=== PATIENT | female | born 1950 | race Caucasian/White ===

== ENCOUNTER 2022-02-06 05:58 | Day surgery (SDC) | payer MEDICARE, BC ==
[2022-02-03 16:03] VITALS: BMI 22.6
[2022-02-06] MEDS ORDERED: Bupivacaine PF 0.5% 30 ML VIAL ONE (06:39)
[2022-02-06] MEDS ORDERED: EPINEPHrine 1 MG/ML AMP ONE (06:39)
[2022-02-06] MEDS ORDERED: Rocuronium Bromide 10 MG/ML (10ML VIAL) ONE (07:18)
[2022-02-06] MEDS ORDERED: Fentanyl 100 MCG/2 ML VIAL ONE ×3 (07:18→08:46)
[2022-02-06] MEDS ORDERED: Dexamethasone 4 mg/ml Vial ONE (07:18)
[2022-02-06] MEDS ORDERED: Glycopyrrolate 0.2 MG/ML 5 ML SYRINGE ONE (07:18)
[2022-02-06] MEDS ORDERED: Ondansetron PF 4 MG/2 ML Vial ONE ×2 (07:18→09:05)
[2022-02-06] MEDS ORDERED: PROPOFOL 20 ML ONE (07:18)
[2022-02-06] MEDS ORDERED: Lidocaine 2% PF 5 ML VIAL ONE (07:18)
[2022-02-06] MEDS ORDERED: CEFAZOLIN 2 GM VIAL ONE (07:22)
[2022-02-06] MEDS ORDERED: HYDROcodone/Acetaminophen 5/325 mg Tablet PO PRN (08:35)
[2022-02-06] MEDS ORDERED: Acetaminophen 325 MG TAB PO PRN (08:35)
[2022-02-06] MEDS ORDERED: HYDROcodone/Acetaminophen 5/325 mg Tablet ONE (10:20)
== END 2022-02-06 10:30 | disposition home or self-care (01) ==
LOC: CSHSDC 05:58
PROVIDERS: ATTEND Surgery
PROC: 0FT44ZZ Resection of Gallbladder, Percutaneous Endoscopic Approach (ICD-10-PCS; principal; 2022-02-06)
DX: K80.10 Calculus of gallbladder with chronic cholecystitis without obstruction (principal); K82.8 Other specified diseases of gallbladder; R59.1 Generalized enlarged lymph nodes; F17.210 Nicotine dependence, cigarettes, uncomplicated; I10 Essential (primary) hypertension; K21.9 Gastro-esophageal reflux disease without esophagitis; Z20.822 Contact with and (suspected) exposure to COVID-19; Z79.82 Long term (current) use of aspirin; Z79.899 Other long term (current) drug therapy; Z88.8 Allergy status to other drugs, medicaments and biological substances
CPT/HCPCS: 47562; C1776; 88304; J0171; J0690; J1100; J2001; J2405; J2704; J3010; S0020

== ENCOUNTER 2022-02-08 14:55 | Observation (INO) | payer MEDICARE, BC ==
[~2022-02-08 14:55] MED LIST: Iopamidol 300 61% 100 ML VIAL FS ONE
[2022-02-08 15:31] LABS: #Eosinphils 0.3 10x3/uL (0.0-0.5); #Monocytes 0.4 10x3/uL (0.0-1.1); #Neutrophils 3.3 10x3/uL (1.5-8.4); %Basophils 0.2 % (0.0-2.0); %Eosinophils 5.2 % (0.0-6.0); %Monocytes 7.2 % (0.0-10.0); Hemoglobin 13.1 g/dL (12.0-15.5); Mean Corpuscular HGB CONC 34.1 g/dL (32.0-36.0); Mean Corpuscular Volume 93.7 fl (81.6-98.3); Mean Platelet Volume 11.8 fl (7.4-10.4); Platelet Count 70 10x3/uL (150-450); RBC Distribution Width 12.3 % (11.5-14.5); White Blood Cell (WBC) Count 5.5 10x3/uL (3.5-10.5)
[2022-02-08 15:47] LABS: ALT (SGPT) 88 U/L (8-55); AST (SGOT) 68 U/L (5-34); Albumin 3.9 g/dL (3.4-4.8); Alkaline Phosphatase 138 U/L (40-110); Anion Gap 17 mmol/L (10-20); BUN (Urea Nitrogen) 15 mg/dL (9.8-20.1); Calc. Creatinine Clearance 0 mL/min (70-130); Carbon Dioxide 30 mmol/L (23-31); Chloride 99 mmol/L (98-107); Estimated GFR 75; Globulin 2.4 g/dL (2.4-3.5); Glucose 88 mg/dL (80-115); Potassium 3.5 mmol/L (3.5-5.1); Protein, Total 6.3 g/dL (5.8-8.1); Sodium 142 mmol/L (136-145)
[2022-02-08 15:58] LABS: Calcium 12.4 mg/dL (7.8-10.44)
[2022-02-08] MEDS ORDERED: Acetaminophen 500 MG TAB ONE (16:49)
[2022-02-08] MEDS ORDERED: Cefepime 2 GM VIAL ONE (17:28)
[2022-02-08] MEDS ORDERED: Senokot S 8.6-50 MG TAB PO PRN (17:57)
[2022-02-08] MEDS ORDERED: Acetaminophen 325 MG TAB PO PRN (17:57)
[2022-02-08] MEDS ORDERED: Ondansetron PF 4 MG/2 ML Vial IVP PRN (17:57)
[2022-02-08] MEDS ORDERED: Vancomycin HCl 500 MG VIAL ONE (18:11)
[2022-02-08] MEDS ORDERED: Vancomycin 1.5 GRAM/300 ML BAG 1.5 GM in Premix Bag 1 BAG IVPB SCH (18:30)
[2022-02-08] MEDS ORDERED: Fluconazole 100 MG TAB PO SCH (19:00)
[2022-02-08] MEDS: Sodium Chloride 0.9% 1,000 ML IV SCH (19:16)
[2022-02-08] MEDS ORDERED: CEFAZOLIN 1 GM in Sodium Chloride 0.9% 100 ML IVPB SCH (22:00)
[2022-02-09 00:27] VITALS: BMI 22.6
[2022-02-09] MEDS: HYDROcodone/Acetaminophen 5/325 mg Tablet PO PRN ×4 (00:43→22:31)
[2022-02-09] MEDS: CEFAZOLIN 1 GM in Sodium Chloride 0.9% 100 ML IVPB SCH ×3 (01:30→18:34)
[2022-02-09] MEDS: Sodium Chloride 0.9% 1,000 ML IV SCH ×3 (01:32→18:34)
[2022-02-09 05:07] LABS: #Eosinphils 0.3 10x3/uL (0.0-0.5); #Monocytes 0.3 10x3/uL (0.0-1.1); #Neutrophils 1.8 10x3/uL (1.5-8.4); %Basophils 0.3 % (0.0-2.0); %Eosinophils 8.6 % (0.0-6.0); %Lymphocytes 34.6 % (18.0-47.0); %Monocytes 8.1 % (0.0-10.0); %Neutrophils 48.1 % (40.0-75.0); Mean Corpuscular HGB CONC 34.1 g/dL (32.0-36.0); Mean Corpuscular Hemoglobin 32.1 pg (27.0-33.0); Mean Corpuscular Volume 94.2 fl (81.6-98.3); Mean Platelet Volume 11.2 fl (7.4-10.4); Platelet Count 54 10x3/uL (150-450); RBC Distribution Width 12.2 % (11.5-14.5); Red Blood Cell (RBC) Count 3.43 10x6/uL (3.90-5.03); White Blood Cell (WBC) Count 3.7 10x3/uL (3.5-10.5)
[2022-02-09 05:30] LABS: ALT (SGPT) 48 U/L (8-55); AST (SGOT) 25 U/L (5-34); Albumin 2.9 g/dL (3.4-4.8); Alkaline Phosphatase 91 U/L (40-110); Anion Gap 14 mmol/L (10-20); BUN (Urea Nitrogen) 12 mg/dL (9.8-20.1); Bilirubin, Total 0.6 mg/dL (0.2-1.2); Calc. Creatinine Clearance 69 mL/min (70-130); Calcium 9.7 mg/dL (7.8-10.44); Carbon Dioxide 25 mmol/L (23-31); Chloride 108 mmol/L (98-107); Estimated GFR 93; Globulin 1.7 g/dL (2.4-3.5); Glucose 112 mg/dL (80-115); Potassium 2.9 mmol/L (3.5-5.1); Protein, Total 4.6 g/dL (5.8-8.1); Sodium 144 mmol/L (136-145)
[2022-02-09] MEDS: Potassium Chloride 20 MEQ in Premix Bag 1 BAG IVPB SCH ×2 (06:32→09:16)
[2022-02-09] MEDS ORDERED: Enoxaparin Sodium 40 MG/0.4 ML SYRINGE SC SCH (09:00)
[2022-02-09] MEDS: Aspirin 81 mg Enteric Coated Tablet PO SCH (09:07)
[2022-02-09] MEDS ORDERED: Potassium Chloride 20 MEQ TAB PO SCH (10:00)
[2022-02-09 15:24] LABS: Magnesium 1.4 mg/dL (1.6-2.6); Potassium 3.7 mmol/L (3.5-5.1)
[2022-02-09] MEDS ORDERED: VANCOMYCIN 1.25 GM/250 ML BAG 1.25 GM in Premix Bag 1 BAG IVPB SCH (20:00)
[2022-02-10] MEDS: CEFAZOLIN 1 GM in Sodium Chloride 0.9% 100 ML IVPB SCH ×2 (03:01→11:17)
[2022-02-10 04:30] LABS: Anion Gap 12 mmol/L (10-20); BUN (Urea Nitrogen) 8 mg/dL (9.8-20.1); Calc. Creatinine Clearance 77 mL/min (70-130); Calcium 8.9 mg/dL (7.8-10.44); Carbon Dioxide 23 mmol/L (23-31); Chloride 111 mmol/L (98-107); Estimated GFR 96; Glucose 94 mg/dL (80-115); Magnesium 1.3 mg/dL (1.6-2.6); Potassium 3.2 mmol/L (3.5-5.1); Sodium 143 mmol/L (136-145)
[2022-02-10 04:35] LABS: #Eosinphils 0.3 10x3/uL (0.0-0.5); #Monocytes 0.3 10x3/uL (0.0-1.1); %Basophils 0.3 % (0.0-2.0); %Eosinophils 6.8 % (0.0-6.0); %Lymphocytes 32.1 % (18.0-47.0); %Monocytes 8.3 % (0.0-10.0); %Neutrophils 51.5 % (40.0-75.0); Mean Corpuscular HGB CONC 34.1 g/dL (32.0-36.0); Mean Corpuscular Hemoglobin 31.8 pg (27.0-33.0); Mean Corpuscular Volume 93.4 fl (81.6-98.3); Mean Platelet Volume 11.3 fl (7.4-10.4); Platelet Count 61 10x3/uL (150-450); RBC Distribution Width 12.1 % (11.5-14.5); Red Blood Cell (RBC) Count 3.46 10x6/uL (3.90-5.03)
[2022-02-10] MEDS: Aspirin 81 mg Enteric Coated Tablet PO SCH (08:07)
[2022-02-10] MEDS ORDERED: Electrolyte Replacement Protocol 1 EACH FS SCH (08:30)
[2022-02-10] MEDS ORDERED: Potassium Chloride 20 MEQ TAB PO SCH (08:30)
[2022-02-10] MEDS: Magnesium 2 GM/50 ML(in water) 2 GM in Premix Bag 1 BAG IVPB SCH ×2 (09:06→10:00)
[2022-02-10] MEDS ORDERED: hydrALAZINE 20 MG/ML VIAL SLOW IVP PRN (09:53)
[2022-02-10 11:31] VITALS: BP 141/65; TEMP 97.2
[2022-02-10 13:30] LABS: Magnesium 2.8 mg/dL (1.6-2.6); Potassium 3.6 mmol/L (3.5-5.1)
== END 2022-02-10 16:15 | disposition home or self-care (01) ==
LOC: CSHERS 14:55 → SUATTDRO 14:55 → CSHERHOLD 18:11 → CSHTELE 02-09 00:12
PROVIDERS: ADMIT Internal Medicine; ATTEND Internal Medicine
DX: T81.41XA Infection following a procedure, superficial incisional surgical site, initial encounter (principal); L03.311 Cellulitis of abdominal wall; B95.62 Methicillin resistant Staphylococcus aureus infection as the cause of diseases classified elsewhere; D69.6 Thrombocytopenia, unspecified; I10 Essential (primary) hypertension; E87.6 Hypokalemia; E83.42 Hypomagnesemia; E83.52 Hypercalcemia; I20.1 Angina pectoris with documented spasm; J44.9 Chronic obstructive pulmonary disease, unspecified; R59.0 Localized enlarged lymph nodes; R74.01 Elevation of levels of liver transaminase levels; F17.210 Nicotine dependence, cigarettes, uncomplicated; Z85.038 Personal history of other malignant neoplasm of large intestine; Z79.82 Long term (current) use of aspirin; Z79.899 Other long term (current) drug therapy; Z91.040 Latex allergy status; Z88.8 Allergy status to other drugs, medicaments and biological substances; Z90.49 Acquired absence of other specified parts of digestive tract; Y83.8 Other surgical procedures as the cause of abnormal reaction of the patient, or of later complication, without mention of misadventure at the time of the procedure
CPT/HCPCS: 36415; 74177; 80048; 80053; 83605; 83690; 83735; 85025; 87040; 87081; 93005; 94760; 96361; 96365; 96366; 96367; 96375; 96376; G0378; J0690; J0692; J2405; J3370; J3475; J3480; J3490; J7050; Q9967

== ENCOUNTER 2022-11-25 11:23 | Inpatient (IN) | payer MEDICARE, BC ==
[2022-11-25 12:13] LABS: ALT (SGPT) 24 U/L (8-55); AST (SGOT) 32 U/L (5-34); Albumin 2.9 g/dL (3.4-4.8); Alkaline Phosphatase 93 U/L (40-110); Anion Gap 17 mmol/L (10-20); BUN (Urea Nitrogen) 39 mg/dL (9.8-20.1); Bilirubin, Total 1.3 mg/dL (0.2-1.2); Calc. Creatinine Clearance 0 mL/min (70-130); Calcium 11.2 mg/dL (7.8-10.44); Carbon Dioxide 18 mmol/L (23-31); Chloride 102 mmol/L (98-107); Estimated GFR 57; Globulin 1.8 g/dL (2.4-3.5); Glucose 103 mg/dL (83-110); Potassium 3.8 mmol/L (3.5-5.1); Protein, Total 4.7 g/dL (5.8-8.1); Sodium 133 mmol/L (136-145)
[2022-11-25] MEDS ORDERED: Promethazine HCl 12.5 MG in Sodium Chloride 0.9% 50 ML IVPB SCH (12:15)
[2022-11-25 12:20] LABS: Magnesium 1.9 mg/dL (1.6-2.6)
[2022-11-25 12:31] LABS: Platelet Count 44 10x3/uL (150-450); White Blood Cell (WBC) Count 2.7 10x3/uL (3.5-10.5)
[2022-11-25 12:32] LABS: Hemoglobin 9.7 g/dL (12.0-15.5); Mean Corpuscular HGB CONC 33.4 g/dL (32.0-36.0); Mean Corpuscular Hemoglobin 30.1 pg (27.0-33.0); Mean Corpuscular Volume 90.1 fl (81.6-98.3); Mean Platelet Volume 11.6 fl (7.4-10.4); RBC Distribution Width 18.1 % (11.5-14.5); Red Blood Cell (RBC) Count 3.22 10x6/uL (3.90-5.03)
[2022-11-25 12:49] LABS: Band 12 % (5-11); Lymphocytes 4 % (21-51); Metamyelocyte 1 % (0-0); Monocytes 2 % (0-10)
[2022-11-25 12:51] LABS: Neutrophil 81 % (42-75)
[2022-11-25 12:54] LABS: Anisocytosis SLIGHT = 6-15 cells (100X) (0-5/hpf); Ovalocytes MODERATE= 6-15 cells (100X) (0-1/hpf)
[2022-11-25 12:55] LABS: Burr Cells SLIGHT = 2-5 cells (100X) (0-1/hpf); Macrocytosis SLIGHT = 6-15 cells (100X) (0-5/hpf); Microcytosis SLIGHT = 6-15 cells (100X) (0-5/hpf); Tear Drops SLIGHT = 2-5 cells (100X) (0-1/hpf)
[2022-11-25 12:57] LABS: Poikilocytosis SLIGHT = 6-15 cells (100X) (0-5/hpf)
[2022-11-25 12:58] LABS: Dohle Bodies SLIGHT; Large Platelets SLIGHT (None Seen); Platelet Adequacy Comment Appears Decreased
[2022-11-25 13:02] LABS: MDiff Complete? YES
[2022-11-25] MEDS ORDERED: Piperacillin/Tazobactam 4.5 GM VIAL ONE (13:43)
[2022-11-25] MEDS ORDERED: fentaNYL 50 mcg/mL 1 mL Vial ONE ×3 (13:43→17:20)
[2022-11-25] MEDS ORDERED: Pantoprazole 40 MG VIAL ONE (13:43)
[2022-11-25 14:47] LABS: Lactic Acid 3.5 mmol/L (0.5-2.2)
[2022-11-25] MEDS ORDERED: Ketorolac Tromethamine 30 MG/ML VIAL ONE (15:38)
[2022-11-25] MEDS ORDERED: Ondansetron ODT 4 MG TAB PO PRN ×2 (17:10→17:15)
[2022-11-25] MEDS ORDERED: D5 1/2 NS w/20 mEq KCL 1,000 ML IV SCH (17:15)
[2022-11-25] MEDS ORDERED: Albumin 25% 100 ML ONE (18:21)
[2022-11-25] MEDS ORDERED: NS 0.9% w/ 20 MEQ KCL 1,000 ML/1,000 ML BAG IV SCH (19:15)
[2022-11-25] MEDS ORDERED: Piperacillin/Tazobactam 3.375 GM in Sodium Chloride 0.9% 100 ML IVPB SCH ×2 (19:30→22:00)
[2022-11-25] MEDS ORDERED: Piperacillin/Tazobactam 3.375 GM VIAL ONE (19:43)
[2022-11-25] MEDS ORDERED: Boostrix 0.5 ML (Tdap) VIAL (>/=7 yrs of age) ONE (19:43)
[2022-11-25] MEDS: TETANUS, DIPHTHERIA TOX,ADULT (TDVAX) 0.5 ML VIAL IM ONE ×2 (19:44→20:31)
[2022-11-25 19:50] LABS: Hemoglobin 5.7 g/dL (12.0-15.5); Mean Corpuscular HGB CONC 32.9 g/dL (32.0-36.0); Mean Corpuscular Volume 91.1 fl (81.6-98.3); Mean Platelet Volume 10.8 fl (7.4-10.4); Platelet Count 19 10x3/uL (150-450); White Blood Cell (WBC) Count 0.9 10x3/uL (3.5-10.5)
[2022-11-25 20:08] LABS: ALT (SGPT) 15 U/L (8-55); AST (SGOT) 19 U/L (5-34); Albumin 2.4 g/dL (3.4-4.8); Alkaline Phosphatase 58 U/L (40-110); Anion Gap 12 mmol/L (10-20); BUN (Urea Nitrogen) 35 mg/dL (9.8-20.1); Bilirubin, Total 1.1 mg/dL (0.2-1.2); Calc. Creatinine Clearance 38 mL/min (70-130); Carbon Dioxide 17 mmol/L (23-31); Chloride 108 mmol/L (98-107); Estimated GFR 63; Globulin 1.1 g/dL (2.4-3.5); Glucose 108 mg/dL (83-110); Potassium 3.3 mmol/L (3.5-5.1); Protein, Total 3.5 g/dL (5.8-8.1); Sodium 134 mmol/L (136-145)
[2022-11-25 20:21] LABS: Anisocytosis SLIGHT = 6-15 cells (100X) (0-5/hpf)
[2022-11-25 20:22] LABS: Hypochromia SLIGHT = 6-15 cells (100X) (0-5/hpf); Ovalocytes SLIGHT = 2-5 cells (100X) (0-1/hpf); Platelet Adequacy Comment Appears Decreased; Polychromasia SLIGHT = 2-3 cells (100X) (0-2/hpf); Reflex for Review?? YES; Tear Drops SLIGHT = 2-5 cells (100X) (0-1/hpf)
[2022-11-25] MEDS ORDERED: Piperacillin/Tazobactam 4.5 GM in Sodium Chloride 0.9% 100 ML IVPB SCH (20:30)
[2022-11-25] MEDS ORDERED: Pantoprazole 40 MG VIAL IVP SCH (21:00)
[2022-11-25] MEDS ORDERED: NIFEdipine XL 60 MG TAB PO SCH (21:00)
[2022-11-25] MEDS: Dextrose 5%-Lactated Ringers 1,000 ML IV SCH (21:33)
[2022-11-25] MEDS: Hydrocortisone Sod Succ/PF 100 mg/2 ml Vial IVP SCH (21:48)
[2022-11-25] MEDS: Potassium Chloride 20 MEQ in Premix Bag 1 BAG IVPB SCH ×2 (21:50→23:52)
[2022-11-25] MEDS ORDERED: Pantoprazole 80 MG, Admixture Fee 1 EACH in Sodium Chloride 0.9% 100 ML IVPB SCH (22:00)
[2022-11-25] MEDS ORDERED: TBO-Filgrastim 300 MCG/0.5 ML VIAL SC SCH (22:00)
[2022-11-25] MEDS ORDERED: Vancomycin HCl 1 GM in Sodium Chloride 0.9% 250 ML 250 ML IVPB SCH (23:00)
[2022-11-26] LABS: Legionella Urinary Ag Negative (Negative); Strep pneumo Urine Ag NEGATIVE (NEGATIVE)
[2022-11-26] MEDS: Albumin 25% 25 GM/100 ML BOT IVPB SCH ×2 (00:36→05:01)
[2022-11-26] MEDS: Piperacillin/Tazobactam 3.375 GM in Sodium Chloride 0.9% 100 ML IVPB SCH ×3 (03:08→20:29)
[2022-11-26 03:42] LABS: Hemoglobin 8.9 g/dL (12.0-15.5); Mean Corpuscular HGB CONC 32.8 g/dL (32.0-36.0); Mean Corpuscular Hemoglobin 30.5 pg (27.0-33.0); Mean Corpuscular Volume 92.8 fl (81.6-98.3); Mean Platelet Volume 12.9 fl (7.4-10.4); Platelet Count 20 10x3/uL (150-450); RBC Distribution Width 16.6 % (11.5-14.5); Red Blood Cell (RBC) Count 2.92 10x6/uL (3.90-5.03); White Blood Cell (WBC) Count 2.6 10x3/uL (3.5-10.5)
[2022-11-26 03:44] LABS: MDiff Complete? YES
[2022-11-26 04:07] LABS: ALT (SGPT) 14 U/L (8-55); AST (SGOT) 20 U/L (5-34); Albumin 2.6 g/dL (3.4-4.8); Alkaline Phosphatase 64 U/L (40-110); Anion Gap 14 mmol/L (10-20); BUN (Urea Nitrogen) 34 mg/dL (9.8-20.1); Band 6 % (5-11); Bilirubin, Total 1.2 mg/dL (0.2-1.2); Calc. Creatinine Clearance 36 mL/min (70-130); Carbon Dioxide 14 mmol/L (23-31); Chloride 110 mmol/L (98-107); Estimated GFR 60; Globulin 1.2 g/dL (2.4-3.5); Glucose 142 mg/dL (83-110); Lymphocytes 8 % (21-51); Magnesium 1.7 mg/dL (1.6-2.6); Monocytes 6 % (0-10); Neutrophil 80 % (42-75); Potassium 3.9 mmol/L (3.5-5.1); Protein, Total 3.8 g/dL (5.8-8.1); Sodium 134 mmol/L (136-145)
[2022-11-26 04:08] LABS: Anisocytosis SLIGHT = 6-15 cells (100X) (0-5/hpf); Ovalocytes SLIGHT = 2-5 cells (100X) (0-1/hpf); Tear Drops SLIGHT = 2-5 cells (100X) (0-1/hpf)
[2022-11-26 04:09] LABS: Platelet Adequacy Comment Platelets Decreased
[2022-11-26] MEDS: Dextrose 5%-Lactated Ringers 1,000 ML IV SCH ×3 (04:42→20:30)
[2022-11-26] MEDS: Hydrocortisone Sod Succ/PF 100 mg/2 ml Vial IVP SCH ×3 (05:01→22:09)
[2022-11-26 08:57] LABS: Hemoglobin 8.8 g/dL (12.0-15.5); Mean Corpuscular HGB CONC 33.5 g/dL (32.0-36.0); Mean Corpuscular Hemoglobin 30.8 pg (27.0-33.0); Mean Platelet Volume 11.8 fl (7.4-10.4); Platelet Count 15 10x3/uL (150-450); RBC Distribution Width 16.9 % (11.5-14.5); Red Blood Cell (RBC) Count 2.86 10x6/uL (3.90-5.03); White Blood Cell (WBC) Count 3.5 10x3/uL (3.5-10.5)
[2022-11-26 08:59] LABS: MDiff Complete? YES
[2022-11-26] MEDS ORDERED: Losartan Potassium 50 MG TAB PO SCH (09:00)
[2022-11-26] MEDS ORDERED: Pantoprazole 40 MG VIAL IVP SCH ×2 (09:00→21:15)
[2022-11-26 09:22] LABS: Band 6 % (5-11); Lymphocytes 4 % (21-51); Monocytes 1 % (0-10); Neutrophil 90 % (42-75)
[2022-11-26 09:23] LABS: Platelet Adequacy Comment Significant decrease
[2022-11-26 09:24] LABS: Ovalocytes MODERATE= 6-15 cells (100X) (0-1/hpf)
[2022-11-26 09:25] LABS: Burr Cells MODERATE= 6-15 cells (100X) (0-1/hpf); Tear Drops SLIGHT = 2-5 cells (100X) (0-1/hpf)
[2022-11-26 09:33] LABS: Lymphocytes 22 % (21-51); Monocytes 2 % (0-10)
[2022-11-26 09:34] LABS: Band 4 % (5-11); Neutrophil 72 % (42-75)
[2022-11-26 09:35] LABS: MDiff Complete? YES
[2022-11-26] MEDS: Morphine 4 MG/ML VIAL SLOW IVP PRN (11:35)
[2022-11-26] MEDS ORDERED: Electrolyte Replacement Protocol 1 EACH FS SCH (12:00)
[2022-11-26] MEDS ORDERED: Magnesium 2 GM/50 ML(in water) 2 GM in Premix Bag 1 BAG IVPB SCH (13:00)
[2022-11-26] MEDS: Ondansetron PF 4 MG/2 ML Vial IVP PRN (15:33)
[2022-11-26] MEDS: Vancomycin HCl 750 MG in Sodium Chloride 0.9% 250 ML 250 ML IVPB SCH (16:34)
[2022-11-26] MEDS: Ipratropium/Albuterol 3 ML NEB NEB PRN (19:50)
[2022-11-27] MEDS: Ipratropium/Albuterol 3 ML NEB NEB PRN ×4 (00:25→19:30)
[2022-11-27] MEDS: Piperacillin/Tazobactam 3.375 GM in Sodium Chloride 0.9% 100 ML IVPB SCH ×3 (03:23→20:48)
[2022-11-27 03:59] LABS: ALT (SGPT) 17 U/L (8-55); AST (SGOT) 18 U/L (5-34); Albumin 2.7 g/dL (3.4-4.8); Alkaline Phosphatase 74 U/L (40-110); Anion Gap 17 mmol/L (10-20); BUN (Urea Nitrogen) 34 mg/dL (9.8-20.1); Bilirubin, Total 2.1 mg/dL (0.2-1.2); Calc. Creatinine Clearance 36 mL/min (70-130); Calcium 8.5 mg/dL (7.8-10.44); Carbon Dioxide 13 mmol/L (23-31); Chloride 114 mmol/L (98-107); Estimated GFR 55; Globulin 1.4 g/dL (2.4-3.5); Glucose 227 mg/dL (83-110); Magnesium 2.1 mg/dL (1.6-2.6); Potassium 2.9 mmol/L (3.5-5.1); Protein, Total 4.1 g/dL (5.8-8.1); Sodium 141 mmol/L (136-145)
[2022-11-27 04:10] LABS: Hemoglobin 7.4 g/dL (12.0-15.5); Mean Corpuscular HGB CONC 31.4 g/dL (32.0-36.0); Mean Corpuscular Hemoglobin 30.6 pg (27.0-33.0); Mean Corpuscular Volume 97.5 fl (81.6-98.3); Mean Platelet Volume 11.8 fl (7.4-10.4); Platelet Count 23 10x3/uL (150-450); RBC Distribution Width 17.4 % (11.5-14.5); Red Blood Cell (RBC) Count 2.42 10x6/uL (3.90-5.03); White Blood Cell (WBC) Count 2.3 10x3/uL (3.5-10.5)
[2022-11-27] MEDS: Potassium Chloride 20 MEQ in Premix Bag 1 BAG IVPB SCH ×3 (04:15→08:42)
[2022-11-27] MEDS: Dextrose 5%-Lactated Ringers 1,000 ML IV SCH (04:15)
[2022-11-27] MEDS ORDERED: Furosemide 20 MG/2 ML VIAL SLOW IVP SCH (04:45)
[2022-11-27] MEDS: Hydrocortisone Sod Succ/PF 100 mg/2 ml Vial IVP SCH ×3 (05:30→22:37)
[2022-11-27 05:33] LABS: MDiff Complete? YES
[2022-11-27 06:10] LABS: Band 8 % (5-11); Lymphocytes 1 % (21-51); Neutrophil 91 % (42-75)
[2022-11-27 06:15] LABS: Crenated RBC SLIGHT = 1-5 cells (100X) (None Seen); Macrocytosis SLIGHT = 6-15 cells (100X) (0-5/hpf); Ovalocytes SLIGHT = 2-5 cells (100X) (0-1/hpf); Schistocytes SLIGHT = 2-5 cells (100X) (0-1/hpf); Tear Drops SLIGHT = 2-5 cells (100X) (0-1/hpf)
[2022-11-27 06:16] LABS: Platelet Adequacy Comment Platelets Decreased
[2022-11-27] MEDS: Morphine 4 MG/ML VIAL SLOW IVP PRN ×4 (07:34→14:38)
[2022-11-27] MEDS ORDERED: Potassium Phosphate 15 MMOL in Sodium Chloride 0.9% 100 ML IVPB SCH (08:00)
[2022-11-27] MEDS: Pantoprazole 40 MG VIAL IVP SCH ×2 (08:14→20:49)
[2022-11-27] MEDS: Ondansetron PF 4 MG/2 ML Vial IVP PRN (08:40)
[2022-11-27] MEDS ORDERED: Promethazine HCl 12.5 MG in Sodium Chloride 0.9% 50 ML IVPB PRN (08:42)
[2022-11-27] MEDS ORDERED: Dextrose 5%-Lactated Ringers 1,000 ML IV SCH (08:42)
[2022-11-27] MEDS: Albumin 25% 25 GM/100 ML BOT IVPB SCH ×3 (09:13→20:48)
[2022-11-27] MEDS ORDERED: Furosemide 40 MG/4 ML VIAL SLOW IVP SCH ×2 (10:00→15:00)
[2022-11-27] MEDS: Vancomycin HCl 750 MG in Sodium Chloride 0.9% 250 ML 250 ML IVPB SCH (10:48)
[2022-11-27 11:02] LABS: Vancomycin, Trough 14.9 ug/mL
[2022-11-27 13:13] LABS: Hemoglobin 10.3 g/dL (12.0-15.5); Mean Corpuscular HGB CONC 32.9 g/dL (32.0-36.0); Mean Corpuscular Hemoglobin 31.1 pg (27.0-33.0); Mean Corpuscular Volume 94.6 fl (81.6-98.3); Platelet Count 23 10x3/uL (150-450); RBC Distribution Width 16.5 % (11.5-14.5); Red Blood Cell (RBC) Count 3.31 10x6/uL (3.90-5.03); White Blood Cell (WBC) Count 3.4 10x3/uL (3.5-10.5)
[2022-11-27 13:33] LABS: Anion Gap 15 mmol/L (10-20); BUN (Urea Nitrogen) 35 mg/dL (9.8-20.1); Calc. Creatinine Clearance 36 mL/min (70-130); Calcium 8.9 mg/dL (7.8-10.44); Carbon Dioxide 14 mmol/L (23-31); Chloride 114 mmol/L (98-107); Estimated GFR 50; Glucose 178 mg/dL (83-110); Potassium 4.4 mmol/L (3.5-5.1); Sodium 139 mmol/L (136-145)
[2022-11-27 13:37] LABS: MDiff Complete? YES
[2022-11-27 13:42] LABS: Band 2 % (5-11); Eosinophils 1 % (0-10); Lymphocytes 5 % (21-51); Neutrophil 92 % (42-75)
[2022-11-27 13:43] LABS: Platelet Adequacy Comment Appears Decreased; RBC Morph Comment Within Normal Limits
[2022-11-27] MEDS: Acetaminophen 325 MG TAB PO SCH ×2 (14:36→20:49)
[2022-11-27] MEDS: Sodium Bicarbonate 75 MEQ in Dextrose 5% in Water 1,000 ML IV SCH (16:58)
[2022-11-28] MEDS: Albumin 25% 25 GM/100 ML BOT IVPB SCH ×4 (02:02→23:22)
[2022-11-28] MEDS: Acetaminophen 325 MG TAB PO SCH ×4 (02:02→20:35)
[2022-11-28] MEDS: Ipratropium/Albuterol 3 ML NEB NEB PRN ×4 (02:20→19:04)
[2022-11-28] MEDS ORDERED: Furosemide 40 MG/4 ML VIAL SLOW IVP SCH (03:00)
[2022-11-28] MEDS: Piperacillin/Tazobactam 3.375 GM in Sodium Chloride 0.9% 100 ML IVPB SCH (03:12)
[2022-11-28] MEDS ORDERED: Vancomycin HCl 750 MG in Dextrose 5% in Water 250 ML IVPB SCH (05:00)
[2022-11-28 05:02] LABS: Actual Bicarbonate (HCO3a) 14.8 mEq/L (22-28); CO2 Tension 25.6 mmHg (35.0-45.0); Calcium, Ionized (arterial) 1.21 mmol/L (1.12-1.30); Carboxyhemoglobin (COHb) 0.7 gm% (0.0-3.0); Hematocrit-ABG 29 % (36.0-47.0); Hemoglobin (Hb) 9.8 g/dL (12.0-16.0); O2 Tension (PaO2), arterial 148.4 mmHg (> 70.0); Potassium - ABG Lab 3.71 mmol/L (3.70-5.30); Puncture Site RRA; pH, Arterial 7.381 (7.35-7.45)
[2022-11-28 05:17] LABS: Lactic Acid 2.2 mmol/L (0.5-2.2)
[2022-11-28 05:20] LABS: Anion Gap 18 mmol/L (10-20); BUN (Urea Nitrogen) 37 mg/dL (9.8-20.1); Calc. Creatinine Clearance 35 mL/min (70-130); Calcium 8.7 mg/dL (7.8-10.44); Carbon Dioxide 13 mmol/L (23-31); Chloride 113 mmol/L (98-107); Estimated GFR 47; Glucose 146 mg/dL (83-110); Potassium 3.7 mmol/L (3.5-5.1); Sodium 140 mmol/L (136-145)
[2022-11-28 05:22] LABS: Phosphorus 2.7 mg/dL (2.3-4.7)
[2022-11-28 05:25] LABS: Hemoglobin 9.3 g/dL (12.0-15.5); MDiff Complete? YES; Mean Corpuscular HGB CONC 33.5 g/dL (32.0-36.0); Mean Corpuscular Hemoglobin 31.3 pg (27.0-33.0); Mean Corpuscular Volume 93.6 fl (81.6-98.3); Platelet Count 30 10x3/uL (150-450); Red Blood Cell (RBC) Count 2.97 10x6/uL (3.90-5.03); White Blood Cell (WBC) Count 2.7 10x3/uL (3.5-10.5)
[2022-11-28] MEDS: Sodium Bicarbonate 75 MEQ in Dextrose 5% in Water 1,000 ML IV SCH ×2 (06:16→17:55)
[2022-11-28] MEDS: Hydrocortisone Sod Succ/PF 100 mg/2 ml Vial IVP SCH ×3 (06:16→20:36)
[2022-11-28 07:04] LABS: Band 3 % (5-11); Lymphocytes 5 % (21-51); Monocytes 5 % (0-10); Neutrophil 87 % (42-75)
[2022-11-28 07:06] LABS: Crenated RBC SLIGHT = 1-5 cells (100X) (None Seen); Hypochromia SLIGHT = 6-15 cells (100X) (0-5/hpf); Microcytosis SLIGHT = 6-15 cells (100X) (0-5/hpf); Ovalocytes SLIGHT = 2-5 cells (100X) (0-1/hpf); Schistocytes SLIGHT = 2-5 cells (100X) (0-1/hpf); Tear Drops SLIGHT = 2-5 cells (100X) (0-1/hpf)
[2022-11-28 07:07] LABS: Platelet Adequacy Comment Appears Decreased
[2022-11-28] MEDS: Pantoprazole 40 MG VIAL IVP SCH ×2 (08:04→20:35)
[2022-11-28] MEDS: Furosemide 40 MG TAB PO SCH ×2 (08:05→15:21)
[2022-11-28] MEDS ORDERED: Meropenem 1 GM in Sodium Chloride 0.9% 100 ML IVPB SCH ×2 (12:00→14:00)
[2022-11-28] MEDS ORDERED: Piperacillin/Tazobactam 3.375 GM in Dextrose 5% in Water 100 ML IVPB SCH (12:00)
[2022-11-28] MEDS: Ondansetron PF 4 MG/2 ML Vial IVP PRN (16:56)
[2022-11-28] MEDS ORDERED: Promethazine HCl 25 MG/ML VIAL ONE ×2 (18:24→18:29)
[2022-11-28] MEDS: WATER IVPB PRN (18:29)
[2022-11-28] MEDS: DEXTROSE 5% IVPB PRN (18:29)
[2022-11-28] MEDS: PROMETHAZINE HCL IVPB PRN (18:29)
[2022-11-28] MEDS: Meropenem 1 GM in Sodium Chloride 0.9% 100 ML IVPB SCH (20:35)
[2022-11-29] MEDS: Ondansetron PF 4 MG/2 ML Vial IVP PRN ×2 (00:07→08:21)
[2022-11-29] MEDS: Acetaminophen 325 MG TAB PO SCH ×5 (01:56→19:59)
[2022-11-29] MEDS: Ipratropium/Albuterol 3 ML NEB NEB PRN (02:55)
[2022-11-29] MEDS: Albumin 25% 25 GM/100 ML BOT IVPB SCH (04:05)
[2022-11-29 04:11] LABS: Hemoglobin 7.4 g/dL (12.0-15.5); Mean Corpuscular HGB CONC 33.2 g/dL (32.0-36.0); Mean Corpuscular Hemoglobin 31.2 pg (27.0-33.0); Mean Corpuscular Volume 94.1 fl (81.6-98.3); Mean Platelet Volume 13.9 fl (7.4-10.4); Platelet Count 10 10x3/uL (150-450); Red Blood Cell (RBC) Count 2.37 10x6/uL (3.90-5.03); White Blood Cell (WBC) Count 1.4 10x3/uL (3.5-10.5)
[2022-11-29 04:15] LABS: Anion Gap 14 mmol/L (10-20); BUN (Urea Nitrogen) 41 mg/dL (9.8-20.1); Calc. Creatinine Clearance 33 mL/min (70-130); Calcium 8.5 mg/dL (7.8-10.44); Carbon Dioxide 20 mmol/L (23-31); Chloride 110 mmol/L (98-107); Estimated GFR 44; Glucose 117 mg/dL (83-110); Potassium 2.8 mmol/L (3.5-5.1); Sodium 141 mmol/L (136-145)
[2022-11-29] MEDS: Potassium Chloride 40 MEQ in Premix Bag 1 BAG IVPB SCH ×2 (04:49→06:49)
[2022-11-29 05:04] LABS: MDiff Complete? YES
[2022-11-29 07:02] LABS: Band 8 % (5-11); Eosinophils 1 % (0-10); Lymphocytes 10 % (21-51); Monocytes 2 % (0-10); Neutrophil 79 % (42-75)
[2022-11-29 07:04] LABS: Macrocytosis SLIGHT = 6-15 cells (100X) (0-5/hpf)
[2022-11-29 07:05] LABS: Crenated RBC SLIGHT = 1-5 cells (100X) (None Seen); Hypochromia SLIGHT = 6-15 cells (100X) (0-5/hpf); Ovalocytes SLIGHT = 2-5 cells (100X) (0-1/hpf); Polychromasia SLIGHT = 2-3 cells (100X) (0-2/hpf); Schistocytes SLIGHT = 2-5 cells (100X) (0-1/hpf); Tear Drops SLIGHT = 2-5 cells (100X) (0-1/hpf)
[2022-11-29 07:06] LABS: Platelet Adequacy Comment Appears Decreased
[2022-11-29] MEDS: Meropenem 1 GM in Sodium Chloride 0.9% 100 ML IVPB SCH ×2 (08:05→19:58)
[2022-11-29] MEDS: Pantoprazole 40 MG VIAL IVP SCH ×2 (08:05→19:59)
[2022-11-29] MEDS: Furosemide 40 MG TAB PO SCH (08:05)
[2022-11-29] MEDS: Hydrocortisone Sod Succ/PF 100 mg/2 ml Vial IVP SCH ×2 (08:05→19:59)
[2022-11-29] MEDS ORDERED: Lorazepam 2 MG/ML VIAL SLOW IVP PRN (11:00)
[2022-11-29] MEDS: DEXTROSE 5% IVPB PRN (12:40)
[2022-11-29] MEDS: WATER IVPB PRN (12:40)
[2022-11-29] MEDS: PROMETHAZINE HCL IVPB PRN (12:40)
[2022-11-29] MEDS: Furosemide 40 MG/4 ML VIAL SLOW IVP SCH (13:18)
[2022-11-29] MEDS: THIAMINE HCL IV SCH (13:49)
[2022-11-29] MEDS: [UNRECOGNIZED DRUG - OTHER] IV SCH (13:49)
[2022-11-29] MEDS: FOLIC ACID IV SCH (13:49)
[2022-11-29] MEDS: MULTIVITAMINS IV SCH (13:49)
[2022-11-29] MEDS ORDERED: MULTIVITAMINS IV SCH (14:00)
[2022-11-29] MEDS ORDERED: FOLIC ACID IV SCH (14:00)
[2022-11-29] MEDS ORDERED: THIAMINE HCL IV SCH (14:00)
[2022-11-29] MEDS ORDERED: [UNRECOGNIZED DRUG - OTHER] IV SCH (14:00)
[2022-11-29] MEDS: Sodium Bicarbonate 75 MEQ in Dextrose 5% in Water 1,000 ML IV SCH (14:05)
[2022-11-29 16:00] LABS: Anion Gap 16 mmol/L (10-20); BUN (Urea Nitrogen) 43 mg/dL (9.8-20.1); Calc. Creatinine Clearance 32 mL/min (70-130); Calcium 8.1 mg/dL (7.8-10.44); Carbon Dioxide 18 mmol/L (23-31); Chloride 111 mmol/L (98-107); Estimated GFR 42; Glucose 156 mg/dL (83-110); Magnesium 1.6 mg/dL (1.6-2.6); Sodium 141 mmol/L (136-145)
[2022-11-29] MEDS: Morphine 4 MG/ML VIAL SLOW IVP PRN (16:59)
[2022-11-29] MEDS: Lorazepam 2 MG/ML VIAL SLOW IVP PRN (19:45)
[2022-11-30] MEDS: Lorazepam 2 MG/ML VIAL SLOW IVP PRN (00:47)
[2022-11-30] MEDS: Acetaminophen 325 MG TAB PO SCH ×4 (01:34→20:18)
[2022-11-30] MEDS: Morphine 4 MG/ML VIAL SLOW IVP PRN ×2 (02:34→13:55)
[2022-11-30 04:11] LABS: ALT (SGPT) 15 U/L (8-55); AST (SGOT) 13 U/L (5-34); Albumin 3.7 g/dL (3.4-4.8); Alkaline Phosphatase 63 U/L (40-110); Anion Gap 13 mmol/L (10-20); BUN (Urea Nitrogen) 52 mg/dL (9.8-20.1); Bilirubin, Total 2.5 mg/dL (0.2-1.2); Calc. Creatinine Clearance 30 mL/min (70-130); Calcium 8.5 mg/dL (7.8-10.44); Carbon Dioxide 22 mmol/L (23-31); Chloride 111 mmol/L (98-107); Estimated GFR 39; Globulin 1.2 g/dL (2.4-3.5); Glucose 224 mg/dL (83-110); Protein, Total 4.9 g/dL (5.8-8.1); Sodium 142 mmol/L (136-145)
[2022-11-30 04:34] VITALS: BMI 20.9
[2022-11-30 04:36] LABS: Hemoglobin 9.3 g/dL (12.0-15.5); Mean Corpuscular HGB CONC 31.7 g/dL (32.0-36.0); Mean Corpuscular Volume 97.7 fl (81.6-98.3); Platelet Count 18 10x3/uL (150-450); RBC Distribution Width 17.2 % (11.5-14.5); White Blood Cell (WBC) Count 1.5 10x3/uL (3.5-10.5)
[2022-11-30] MEDS: Furosemide 40 MG/4 ML VIAL SLOW IVP SCH ×2 (05:10→13:27)
[2022-11-30 05:46] LABS: MDiff Complete? YES
[2022-11-30 06:14] LABS: Band 11 % (5-11); Lymphocytes 8 % (21-51); Monocytes 11 % (0-10); Neutrophil 68 % (42-75); Nucleated RBC (Manual Ct) 3 % (0); Reactive Lymphocytes 2 % (0-10)
[2022-11-30 06:20] LABS: Hypochromia SLIGHT = 6-15 cells (100X) (0-5/hpf); Macrocytosis SLIGHT = 6-15 cells (100X) (0-5/hpf); Ovalocytes SLIGHT = 2-5 cells (100X) (0-1/hpf); Polychromasia SLIGHT = 2-3 cells (100X) (0-2/hpf); Schistocytes SLIGHT = 2-5 cells (100X) (0-1/hpf)
[2022-11-30 06:21] LABS: Tear Drops SLIGHT = 2-5 cells (100X) (0-1/hpf)
[2022-11-30 06:22] LABS: Platelet Adequacy Comment Appears Decreased
[2022-11-30] MEDS ORDERED: Magnesium 2 GM/50 ML(in water) 2 GM in Premix Bag 1 BAG IVPB SCH (09:00)
[2022-11-30] MEDS: Pantoprazole 40 MG VIAL IVP SCH ×2 (09:34→20:18)
[2022-11-30] MEDS: Hydrocortisone Sod Succ/PF 100 mg/2 ml Vial IVP SCH ×2 (09:40→20:18)
[2022-11-30] MEDS: Meropenem 500 MG in Sodium Chloride 0.9% 100 ML IVPB SCH ×2 (10:00→21:24)
[2022-11-30] MEDS ORDERED: Meropenem 500 MG VIAL ONE (10:01)
[2022-11-30] MEDS ORDERED: Sodium Chloride 0.9% 100 ML ONE (10:01)
[2022-11-30] MEDS: [UNRECOGNIZED DRUG - OTHER] IV SCH (13:30)
[2022-11-30] MEDS: MULTIVITAMINS IV SCH (13:30)
[2022-11-30] MEDS: THIAMINE HCL IV SCH (13:30)
[2022-11-30] MEDS: FOLIC ACID IV SCH (13:30)
[2022-11-30] MEDS: Meropenem 1 GM in Sodium Chloride 0.9% 100 ML IVPB SCH (19:16)
[2022-11-30] MEDS ORDERED: Scopolamine 1.5 mg/72 hour Patch TOP SCH (22:00)
[2022-12-01] MEDS: Acetaminophen 325 MG TAB PO SCH ×2 (01:30→09:19)
[2022-12-01 03:35] LABS: Mean Corpuscular Hemoglobin 31.4 pg (27.0-33.0); Mean Platelet Volume 13.5 fl (7.4-10.4); Platelet Count 14 10x3/uL (150-450); RBC Distribution Width 17.7 % (11.5-14.5); Red Blood Cell (RBC) Count 2.87 10x6/uL (3.90-5.03); White Blood Cell (WBC) Count 1.4 10x3/uL (3.5-10.5)
[2022-12-01 03:36] LABS: MDiff Complete? YES
[2022-12-01 03:41] LABS: Phosphorus 4.3 mg/dL (2.3-4.7)
[2022-12-01 03:44] LABS: ALT (SGPT) 14 U/L (8-55); AST (SGOT) 26 U/L (5-34); Albumin 3.4 g/dL (3.4-4.8); Alkaline Phosphatase 60 U/L (40-110); Anion Gap 12 mmol/L (10-20); BUN (Urea Nitrogen) 68 mg/dL (9.8-20.1); Bilirubin, Total 2.1 mg/dL (0.2-1.2); Calc. Creatinine Clearance 30 mL/min (70-130); Calcium 8.4 mg/dL (7.8-10.44); Carbon Dioxide 25 mmol/L (23-31); Chloride 109 mmol/L (98-107); Estimated GFR 38; Globulin 1.4 g/dL (2.4-3.5); Glucose 199 mg/dL (83-110); Magnesium 2.4 mg/dL (1.6-2.6); Potassium 4.2 mmol/L (3.5-5.1); Protein, Total 4.8 g/dL (5.8-8.1); Sodium 142 mmol/L (136-145)
[2022-12-01 04:55] LABS: Platelet Adequacy Comment Appears Decreased
[2022-12-01 04:59] LABS: Band 4 % (5-11); Lymphocytes 15 % (21-51); Monocytes 6 % (0-10); Neutrophil 75 % (42-75); Nucleated RBC (Manual Ct) 1 % (0)
[2022-12-01 05:00] LABS: Anisocytosis SLIGHT = 6-15 cells (100X) (0-5/hpf); Macrocytosis SLIGHT = 6-15 cells (100X) (0-5/hpf); Microcytosis SLIGHT = 6-15 cells (100X) (0-5/hpf); Ovalocytes SLIGHT = 2-5 cells (100X) (0-1/hpf)
[2022-12-01] MEDS: Morphine 4 MG/ML VIAL SLOW IVP PRN ×3 (05:15→13:48)
[2022-12-01] MEDS: Furosemide 40 MG/4 ML VIAL SLOW IVP SCH (05:46)
[2022-12-01] MEDS: Pantoprazole 40 MG VIAL IVP SCH (09:20)
[2022-12-01] MEDS: Hydrocortisone Sod Succ/PF 100 mg/2 ml Vial IVP SCH (09:20)
[2022-12-01] MEDS: Meropenem 500 MG in Sodium Chloride 0.9% 100 ML IVPB SCH (09:20)
[2022-12-01 11:36] VITALS: BP 104/58; TEMP 98.2
[2022-12-01] MEDS ORDERED: Lorazepam 2 MG/ML VIAL SLOW IVP PRN (11:42)
[2022-12-01] MEDS ORDERED: Morphine 10 MG/ML VIAL SLOW IVP SCH (11:45)
[2022-12-03] MEDS ORDERED: Transdermal Patch Removal TOP SCH (22:00)
== END 2022-12-01 18:02 | disposition expired | DRG 871 ==
LOC: CSHERS 11:23 → CSHERHOLD 19:10 → CSHIMCU 21:10
PROVIDERS: ADMIT Family Medicine; ATTEND Internal Medicine
PROC: 30233J1 Transfusion of Nonautologous Serum Albumin into Peripheral Vein, Percutaneous Approach (ICD-10-PCS; 2022-11-25)
PROC: 30233N1 Transfusion of Nonautologous Red Blood Cells into Peripheral Vein, Percutaneous Approach (ICD-10-PCS; 2022-11-25)
PROC: 3E03329 Introduction of Other Anti-infective into Peripheral Vein, Percutaneous Approach (ICD-10-PCS; 2022-11-25)
PROC: 30233R1 Transfusion of Nonautologous Platelets into Peripheral Vein, Percutaneous Approach (ICD-10-PCS; 2022-11-26)
PROC: 02H633Z Insertion of Infusion Device into Right Atrium, Percutaneous Approach (ICD-10-PCS; principal; 2022-11-28)
PROC: B548ZZA Ultrasonography of Superior Vena Cava, Guidance (ICD-10-PCS; 2022-11-28)
PROC: 5A09357 Assistance with Respiratory Ventilation, Less than 24 Consecutive Hours, Continuous Positive Airway Pressure (ICD-10-PCS; 2022-11-28)
PROC: 5A0945A Assistance with Respiratory Ventilation, 24-96 Consecutive Hours, High Flow/Velocity Cannula (ICD-10-PCS; 2022-11-28)
PROC: 4A133R1 Monitoring of Arterial Saturation, Peripheral, Percutaneous Approach (ICD-10-PCS; 2022-11-28)
PROC: 6A550Z2 Pheresis of Platelets, Single (ICD-10-PCS; 2022-11-29)
DX: A41.9 Sepsis, unspecified organism (principal); I50.23 Acute on chronic systolic (congestive) heart failure; K57.20 Diverticulitis of large intestine with perforation and abscess without bleeding; D61.818 Other pancytopenia; I42.9 Cardiomyopathy, unspecified; I13.0 Hypertensive heart and chronic kidney disease with heart failure and stage 1 through stage 4 chronic kidney disease, or unspecified chronic kidney disease; Z51.5 Encounter for palliative care; R65.20 Severe sepsis without septic shock; E78.5 Hyperlipidemia, unspecified; F17.210 Nicotine dependence, cigarettes, uncomplicated; I73.9 Peripheral vascular disease, unspecified; J44.9 Chronic obstructive pulmonary disease, unspecified; E87.6 Hypokalemia; D86.9 Sarcoidosis, unspecified; D63.1 Anemia in chronic kidney disease; N18.2 Chronic kidney disease, stage 2 (mild); Z88.8 Allergy status to other drugs, medicaments and biological substances; Z90.49 Acquired absence of other specified parts of digestive tract; Z91.040 Latex allergy status
CPT/HCPCS: 36415; 36430; 36600; 71045; 74019; 74177; 80048; 80053; 80202; 82274; 82310; 82805; 83605; 83735; 83880; 84100; 84443; 85025; 85060; 86140; 86850; 86900; 86901; 87040; 87076; 87149; 87449; 87899; 90714; 90715; 93005; 93306; 94640; 94660; 94760; 94762; 94799; 96361; 96365; 96375; 96376; C9113; J1447; J1720; J1885; J1940; J2060; J2185; J2270; J2405; J2543; J2550; J3010; J3370; J3411; J3475; J3480; J3490; J7050; J7070; J7620; P9016; P9035; P9047; Q9967